=== PATIENT | male | born 1940 | race Caucasian/White ===

== ENCOUNTER 2016-06-30 16:56 | Emergency (ER) | payer MEDICARE, MEDICAID ==
[2016-06-30 18:11] LABS: ABSOLUTE NEUTROPHIL COUNT 7.2 K/mm3 (1.8-7.7); BASO % 0.1 % (0.2-1.0); EOS % 0.3 % (0.9-2.9); HEMATOCRIT 44.1 % (32.0-52.0); HEMOGLOBIN 14.6 gm/l (14.0-18.0); IMM NEUT% 0.4 % (0-1); LYMPH # 1.5 (1.0-4.8); LYMPH % 15.8 % (15-45); MEAN CELL VOLUME 101.1 fl (80.0-94.0); MEAN CORPUSCULAR HEMOGLOBIN 33.5 pg (27.0-31.0); MEAN CORPUSCULAR HGB CONC 33.1 g/dl (33.0-37.0); MEAN PLATELET VOLUME 10.4 fl (7.4-10.4); MONO # 0.5 (0.0-0.8); MONO % 5.8 % (4-12); NEUT % 77.6 % (43-75); PLATELET COUNT 260 K/mm3 (130-400); RED CELL DISTRIBUTION WIDTH 13.4 % (11.5-14.5)
[2016-06-30] MEDS ORDERED: SODIUM CHLORIDE 0.9% 1,000 ML ONE (18:20)
[2016-06-30] MEDS ORDERED: ONDANSETRON 4 MG/2ML 2 ML VIAL ONE ×2 (18:20→18:57)
[2016-06-30 18:25] LABS: ALB/GLOB RATIO 1.4 (>1.0); ALBUMIN 4.2 gm/dL (3.5-5.7); CALCIUM 9.4 mg/dL (8.6-10.3)
[2016-06-30] MEDS ORDERED: METOCLOPRAMIDE HCL 5 MG/ML 2ML VIAL ONE (18:37)
[2016-06-30] MEDS ORDERED: DIAZEPAM 5 MG/ML SYRINGE 2 ML ONE (19:13)
[2016-06-30 19:17] LABS: URINE BILIRUBIN NEGATIVE (NEGATIVE); URINE BLOOD TRACE (NEGATIVE); URINE GLUCOSE (UA) NEGATIVE (NEGATIVE); URINE LEUKOCYTE ESTERASE NEGATIVE (NEGATIVE); URINE NITRITE NEGATIVE (NEGATIVE); URINE PROTEIN TRACE (NEGATIVE); URINE UROBILINOGEN NORMAL (0-1 mg/dl)
[2016-06-30 19:22] LABS: URINE APPEARANCE CLEAR; URINE COLOR YELLOW
[2016-06-30 19:37] LABS: URINE BACTERIA 0; URINE EPITHELIAL CELLS 0 /hpf; URINE RBC 0-3 /hpf; URINE WBC NEG /hpf
== END 2016-06-30 20:12 | disposition home or self-care (01) ==
LOC: ED 16:56
DX: E86.0 Dehydration (principal); R11.2 Nausea with vomiting, unspecified; R53.1 Weakness
CPT/HCPCS: 85025; 80053; 81001; 96375 ×2; 99283 ×2; 96376; 96374; 96361; 93005; J2765; J3360; J2405 ×2; J7030